=== PATIENT | female | born 1950 | race Caucasian/White ===

== ENCOUNTER 2025-01-11 10:13 | Outpatient (AMB) | payer MEDICARE, SELFPAY ==
--- NOTE | 2025-01-11 10:21 | MHC.OFFVIS ---
Intake Visit Reasons: balance Allergies No Known Allergies Allergy (Verified 01/06/25 14:28) Medication List - Last Reconciled 01/11/25 by Stacey Sotelo MD atorvastatin 10 mg PO DAILY vaqhfudvjw-irwyaaqbwpjvl-npxi 50-325-40 mg 1 tab PO Q4H PRN celecoxib (Celebrex) 200 mg PO BID HPI Comments Details: This is a 74-year-old right-handed woman with cerebral microvascular white matter disease some balance problems in the past with multiple closed head injuries as a result of falls, and a history of carpal tunnel syndrome . There had been no significant change management analyst the years. She had a fall with facial injury after tripping on a hole in the pavement on August 09, [address] head. Had shingles right lower extremity in Feb 2022. Has a right heel spur also. Wakes with pressure in head 2-3/ week, better as day goes on. No vertigo. She has cervical spondylosis, muscle tension headaches. Fell in Nov 2022 and again in September 2023 when she tripped on a rug. Has a torn rotator cuff on the right, and has bilateral knee injury and needs arthroscopic surgery. Has pain and tenderness in right fronto temporal area. ?MRI of the brain 2002 for facial pain found to have mild microvascular disease versus demyelinating disease with no significant change on follow-up MRIs in 2013 and 2018 . FOR[facility]LY [facility], [facility] Medical History (Updated 01/11/25 @ 10:40 by Stacey Sotelo MD) Demyelinating disease CTS (carpal tunnel syndrome) Cerebral microvascular disease Insomnia Tension headache Review of Systems Const Details: Sleep:? Difficulty getting to sleep?admits.? Difficulty maintaining sleep?admits.? Urge to move legs?denies.? Teeth grinding?denies.? Shouting or Kicking during sleep?denies.? Abnormal behavior during sleep?denies.? Excessive sleep?denies.? Snoring?denies.? Daytime sleepiness?denies.? ?? General/Constitutional:? Change in appetite?denies.? Chills?denies.? Fatigue?denies.? Fever?denies.? Weight gain?denies.? Weight loss?denies.? ?? Ophthalmologic:? Blurred vision?denies.? Diminished visual acuity?denies.? ?? ENT:? Stuffiness?denies.? Decreased hearing?denies.? Dry mouth?denies.? Ear pain?denies.? Nosebleed?denies.? Ringing in the ears?denies.? Sinus pain?denies.? Sore throat?denies.? Swollen glands?denies.? ?? Endocrine:? Cold intolerance?denies.? Excessive thirst?denies.? Frequent urination?denies.? Heat intolerance?denies.? ?? Respiratory:? Shortness of breath?denies.? Chest pain?denies.? Cough?denies.? ?? Breast:? Breast lump?denies.? Nipple discharge?denies.? ?? Cardiovascular:? Chest pain at rest?denies.? Chest pain with exertion?denies.? Claudication?denies.? Dizziness?denies.? Fluid accumulation in the legs?denies.? Irregular heartbeat?denies.? Palpitations?denies.? ?? Gastrointestinal:? Abdominal pain?denies.? Constipation?denies.? Diarrhea?denies.? Difficulty swallowing?denies.? Heartburn?denies.? Nausea?denies.? Rectal bleeding?denies.? ?? Hematology:? Easy bruising?denies.? Prolonged bleeding?denies.? ?? Genitourinary:? Frequent urination?denies.? Urgency?denies.? Incontinence?denies.? Erectile Dysfunction?denies.? ?? Musculoskeletal:? Neck pain?denies.? Back pain?denies.? Muscle aches?denies.? Painful joints?admits.? Sciatica?denies.? Weakness?denies.? ?? Podiatric:? Difficulty walking?denies.? Foot numbness?denies.? ?? Neurologic:? Difficulty swallowing?denies.? Balance difficulty?denies.? Coordination?normal.? Difficulty speaking?denies.? Dizziness?denies.? Fainting?denies.? Gait abnormality?denies.? Headache?admits.? Loss of strength?denies.? Loss of use of extremity?denies.? Low back pain?denies.? Memory loss?denies.? Seizures?denies.? Tics?denies.? Tingling/Numbness?denies.? Transient loss of vision?denies.? Tremor?denies.? ?? Psychiatric:? Anxiety?denies.? Auditory/visual hallucinations?denies.? Delusions?denies.? Depressed mood?denies.? Stressors?denies.? Substance abuse?denies.? Suicidal thoughts?denies.? ?? Physical Exam Neuro Other: Neurological: ? Abnormal neurological findings:??none.? Mental Status:?alert and oriented X 3,?Normal attention, orientation, memory and affect.? Cranial Nerves:?Pupils are equal, round and reactive to light. Fundoscopy shows normal disc bilaterally. External occular muscles are intact. Visual wynn are full, no ptosis. Face is symmetrical, no facial weakness or droop. Facial sensations are normal. Tongue protrudes in midline. Palate elevates symmetrically. Shoulder shrugging is normal..? Motor Examination:?Normal muscle tone, bulk and strength,?No atrophy or fasciculations,?No drift of the extended upper extremities,?Deep tendon reflexes are 2+?,?Plantars are flexor?.? Straight Leg Raising:?90 degrees.? Sensory Exam:?Normal light touch, temperature, pinprick, vibration and joint-position sensations?,?Rhomberg sign is absent.? Coordination:?no ataxia,?no titubation,?wvxlni-jx-uank, usvy-hduf-jxrj test and rapid alternating movements were normal.? Gait Exam:?Within normal limits.? Cerebellar Signs:?Msjrxi-rl-wvmp and nwbg-qh-mbvv is normal,?no dysdiadochokinesia?.? Extrapyramidal System:?No tremor, rigidity with normal facial expressions,?No bradykinesia, no bradyphrenia. Normal arm swing and posture. No propulsion or retropulsion.? Speech:?Normal,?no dysphasia or dysarthria..? Mini Mental Status Exam: ? Level of Consciousness:?Alert.? Orientation:?Knows correct year, month, date, day and season,?Knows correct city, county and state. Knows correct location and floor.? Registration:?Able to register 3 objects.? Attention:?Serial 7's performed accurately.? Recall:?Able to recall 3 out of 3 objects.? Language:?Normal spontaneous speech, fluency, repetition,naming, comprehension, reading and writing.? Total Score ?30/30.? General Examination: ? GENERAL APPEARANCE:?normal,?in no acute distress.? HEAD:?normocephalic,?atraumatic.? EYES:?sclera non-icteric,?conjunctiva clear.? EARS:?auditory canal clear,?tympanic membrane intact, clear.? NOSE:?no lesions.? ORAL CAVITY:?gums normal,?mucosa moist,?no lesions.? THROAT:?clear.? NECK/THYROID:?no cervical lymphadenopathy,?thyroid normal,?neck supple, full range of motion,?no carotid bruit.? SKIN:?no rashes,?no significant birthmarks.? HEART:?S1, S2 normal,?no murmurs.? LUNGS:?clear anteriorly and posteriorly.? CHEST:?no gross rib deformity,?clear to auscultation.? BACK:?normal exam of spine.? EXTREMITIES:?no edema.? PERIPHERAL PULSES:?normal.? PSYCH:?alert, oriented,?cognitive function intact,?cooperative with exam.? Assessment & Plan Assessment & Plan (1) Cerebral microvascular disease: Code(s): I67.89 - Other cerebrovascular disease Category: Medical (2) Concussion: Code(s): S06.0XAA - Concussion with loss of consciousness status unknown, initial encounter Category: Medical Plan F/U MRI brain Orders: Orders MR head/brain wo con 4 Weeks I67.89 - Other cerebrovascular disease Coding Level of Care Code New Pt Level 5 (54700) Diagnoses Cerebral microvascular disease I67. Concussion S06.0XAA
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
--- OUTSIDE RECORDS SUMMARY | 2025-01-11 11:47 | XMS_ITS | Clinical Summary ---
Author Organization [facility] [address] [place] [address] Address [address] [place], [place] Phone Care Team Providers Care Mems Integration Engineer Name Role Phone Chandra Smiley MD Primary Care Provider Allergies Active Allergy Reactions Criticality Noted Date Comments Other 06/05/2014 smoke Pollen Extracts 07/05/2024 Medications meclizine (ANTIVERT) 25 mg tablet Take 1 Tablet by mouth 3 times daily as needed (vertigo). 10/05/19 24 Active MULTIVITAMIN ORAL Take by mouth. Multiple Vitamins-Mine rals (Multivitamin Adults 50+) Tab Active acetaminophen (TYLENOL) 500 mg tablet Take 1 tablet (500 mg total) by mouth every 6 (six) hours if needed. Active albuterol HFA (PROAIR HFA ; PROVENTIL HFA ; VENTOLIN HFA) 90 mcg/actuation inhaler Inhale 2 Puffs into the lungs every 4 hours as needed for Cough, Wheezing or Shortness of Breath. 02/10/20 23 Active calcium carbonate/dominique min D3 (CALCIUM 600 + D,3, ORAL) Take 600 mg by mouth daily. Active celecoxib (CeleBREX) 200 mg capsule Take 1 capsule (200 mg total) by mouth 2 (two) times a day if needed for moderate pain. 180 each 1 05/03/19 25 Active alendronate (FOSAMAX) 70 mg tablet Take 1 tablet once weekly 4 tablet 3 07/06/19 25 Active atorvastatin (LIPITOR) 10 mg tablet TAKE 1 TABLET BY MOUTH DAILY 90 tablet 12/14/19 25 Active atorvastatin (LIPITOR) 10 mg tablet TAKE 1 TABLET BY MOUTH DAILY 90 tablet 1 05/18/19 25 025 Discontinued Active Problems Problem Noted Date Diagnosed Date Seasonal allergic rhinitis 07/20/2024 Cholelithiasis 07/20/2024 Anxiety 07/20/2024 Primary osteoarthritis of right knee 06/08/2024 Primary osteoarthritis of left knee 06/08/2024 Gait instability 06/08/2024 History of fall 06/08/2024 Rotator cuff arthropathy of right shoulder 03/[address] nodules [address] CT 03/18/2024 Assessment & Plan (08/15/2024 5:25 PM EDT): Orders: CT Chest wo Contrast; Future Patient is a non-smoker, has multiple small pulmonary and bilateral nodules. Stable on recent CT imaging. Repeat CT scan for 6-month follow-up recommended. GERD (gastroesophageal reflux disease) 2 Arthritis of both knees 11/08/2020 Hyperlipidemia 03/22/2020 Assessment & Plan (08/15/2024 5:25 PM EDT): Continue on Lipitor daily. Cholesterol levels are controlled. Closed head injury 10/22/2015 Overview (12/25/2023): Sees neuro, had mri IBS (irritable bowel syndrome) 10/19/2014 Major depression 06/05/2014 Carpal tunnel syndrome 01/20/2005 Idiopathic osteoporosis 01/20/2005 Overview (12/25/2023): Did not like fosamax in the past 01/28 T score spine -2.0 hip -2.6 Assessment & Plan (08/15/2024 5:25 PM EDT): Continue on Fosamax. Continue care with endocrinology. Bone density pending. Encounters Date Type Department Care Team Description 12/08/2024 Telephone Adult Medicine [id number] [place] [address] Chandra Smiley MD 10/19/2024 9:37 AM EDT - 10/19/2024 12:[address] [facility] Emergency [address] [place] [address] Chronic nonintractable headache, unspecified headache type (Primary Dx) Discharge Disposition: Home or Self Care 10/13/2024 1:31 PM EDT - 10/13/2024 5:09 PM EDT [facility] Emergency [address] [place] [phone] Discharge Disposition: Home or Self Care from Last 3 Months Immunizations Immunization Administration Dates Next Due Influenza Quadravalent, 0.5m l (Fluad) 65yo and older 01/11/2021 Influenza Quadravalent, 0.5m l (Fluzone High-dose) 65yo and older 11/09/2019 Influenza trivalent, 0.5mL ( Fluad) 65yo and older 11/01/2021,01/06/2019,11/17/2017,02/20,01/22/2016 Influenza trivalent, with pr eservative (Fluzone; Afluria) 6mo and older 12/09/2013,03/08/2013 Influenza, Unspecified 11/24/2022,02/20/2017, BuildOut SARS-CoV-2 COVID-19, mRNA, LNP-S, preservative free 11/01/2020,08/01/2020,06/01/2020,05/11 Pneumococcal conjugate 13 va lent (Prevnar 13, PCV13) 2mo and older 05/29/2017,04/12/2015 Pneumococcal polysaccharide 23 valent (Pneumovax 23) 2yo and older 01/06/2019 RSV, bivalent, protein subun it RSVpreF, 0.5mL, Preservative Free (Arexvy) 50yo and older 02/20/2023 Td Tetanus diptheria (Tdvax) 7yo and older 02/09/2004 Td, Unspecified 02/09/2004 Tdap Tetanus diptheria acell ular pertussis (Boostrix; Adacel) 7yo and older 04/12/2015,07/04/2010 Zoster Live 06/07/2013 Zoster recombinant (Shingrix ) 19yo and older 05/23/2023,02/20/2023 Surgical History Surgery Date Site/Laterality Comments SECTION PROCEDURE: HISTORICAL DELIVERY; COMMENT: x 3 COLONOSCOPY PROCEDURE: HISTORICAL COLONOSCOPY; COMMENT: 2001 COLONOSCOPY PROCEDURE: HISTORICAL COLONOSCOPY; COMMENT: Normal colonoscopy COLONOSCOPY 09/24/2020 PROCEDURE: HISTORICAL COLONOSCOPY; COMMENT: mild sigmoid diverticulosis Medical History Medical History Date Comments Idiopathic osteoporosis 01/20/2005 DX:Idiop athic osteoporosis Carpal tunnel syndrome 01/20/2005 DX:Carpal tunnel syndrome IBS (irritable bowel syndrome) 10/19/2014 D X:IBS (irritable bowel syndrome) Colon cancer screening 04/19/2015 DX:Colon cancer screening; COMMENT: [place] done 04/2015 and due in 10 years Closed head injury 10/22/2015 DX:Closed hea d injury; COMMENT: Sees neuro, had mri Abdominal cramping DX:Abdominal cramping Straining with stools DX:Straini ng with stools Depressive disorder DX:Depressiv e disorder Hyperlipidemia DX:Hyperlipidemi a GERD (gastroesophageal reflux disease) DX:GERD (gastroesophageal reflux disease) Abdominal cramping DX:Abdominal cramping Anxiety 07/20/2024 Family History Medical History Relation Name Comments Depression Brother Hypertension Father Breast cancer Mother 66y depression, ar thritis Depression Sister Relation Name Status Comments Brother Father Mother 66y Sister Social History Tobacco Use Types Packs/Day Years Used Date Smoking Tobacco: Never Smokeless Tobacco: Never Tobacco Cessation:Counseling Given: Not Answered Alcohol Use Standard Drinks/Week Comments No 0 [...] care for your loved ones. For example, child protective services social worker or elderly care for an older adult? [...] AM EDT Sexual Orientation Not on file Obstetrics History Para Term AB IAB SAB Ectopic Multiple Livin g Live Births 3 3 3 3 Date Outcome GA Total Labor Labor/2nd/3rd Weight Sex Type Anes PTL Tania A1 A5 Name Clin Term Term Term Last Filed Vital Signs Vital Sign Reading Time Taken Comments Blood Pressure 134/64 10/19/2024 9:48 AM EDT Pulse 76 10/19/2024 9:48 AM EDT Temperature 36.9 C (98.4 F) 10/19/2024 9:48 AM EDT Respiratory Rate 18 10/19/2024 9:48 AM EDT Oxygen Saturation 100% 10/19/2024 9:48 AM EDT Inhaled Oxygen Concentration - - Weight 59 kg (130 lb) 10/19/2024 9:42 AM EDT Height 149.9 cm (4' 11 ) 10/19/2024 9:42 AM EDT Body Mass Index 26.26 10/19/2024 9:42 AM EDT Plan of Treatment Upcoming Encounters Date Type Department Care Team (Late st Contact Info) Description 02/16/2025 11:00 AM EST Office Visit Adult Medicine [address] [phone] Tess Chino PA [address] [place] [address] 07/05/2025 11:00 AM EDT Office Visit [address] [phone] Johanna Downs PA [address] [place] [id number] Health Maintenance Due Date Last Done Comments COVID-19 Vaccine ( season) 2024 01/15/2024, 05/23/2023, 11/01/2021, Additional history exists DTaP,Tdap,and Td Vaccines (5 - Td or Tdap) 04/12/2025 04/12/2015, 07/04/2010, 02/09/2004, Additional history exists Falls Risk Assessment 08/15/2025 08/15/2024 , 08/15/2024, 10/05/2023 Medicare Annual Wellness Visit 08/15/2025 08/15/2024 Social Influencers of Health Screening 08/15/2025 08/15/2024 Cholesterol Screening (Lipid Panel) 03/31/2029 03/31/2024, 02/18/2023 Osteoporosis Screening (Bone Density Screening) 08/30/2034 08/30/2024, 02/03/2022, 04/20/2019 Pneumococcal Vaccine: 50+ Years Completed 01/06/2019, 05/29/2017, 04/12/2015 Colorectal Cancer Screening: Colonoscopy Discontinued 09/24/2020 Hepatitis C Screening Completed 11/17/2020 RSV Immunization Adult Patients Completed 02/20/2023 Zoster Vaccines Completed 05/23/2023, 02/06, 06/07/2013 Depression Screening Completed 08/15/2024, 08/11/19 Breast Cancer Screening Discontinued 08/24/19, 02/27/2023, 02/17/2022, Additional history exists Influenza Vaccine Completed 10/08/2024, , 11/01/2021, Additional history exists HIB Vaccines Aged Out No longer eligi ble based on patient's age to complete this topic HPV Vaccines Aged Out No longer eligi ble based on patient's age to complete this topic Hepatitis A Vaccines Aged Out No long er eligible based on patient's age to complete this topic Hepatitis B Vaccines Aged Out No long er eligible based on patient's age to complete this topic IPV Vaccines Aged Out No longer eligi ble based on patient's age to complete this topic MMR Vaccines Aged Out No longer eligi ble based on patient's age to complete this topic Meningococcal ACWY Vaccine Aged Out N o longer eligible based on patient's age to complete this topic Meningococcal B Vaccine Aged Out No l onger eligible based on patient's age to complete this topic RSV Immunization Patients Under 20 months Aged Out No longer eligible based on patient's age to complete this topic Varicella Vaccines Aged Out No longer eligible based on patient's age to complete this topic Goals Goal Patient Goal Type Associated Problems [...] better to minimize her risk of falls. Procedures Procedure Name Priority Date/Time Associated Diagnosis Comments BD BONE DENSITY DXA AXIAL SKELETON Routine 08/30/2024 2:38 PM EDT Age related osteoporosis, unspecified pathological fracture presence MG MAMMO DIGITAL SCREENING W MAX BILAT Routine 08/23/2024 2:56 PM EDT Encounter for screening mammogram for breast cancer LIPID PANEL WITH REFLEX TO DIRECT LDL Routine 03/31/2024 3:59 PM EST Other hyperlipidemia FALLS RISK ASSESSMENT Routine 10/05/2023 DEPRESSION SCREENING Routine 08/11/2023 HEPATITIS C SCREENING Routine 11/17/2020 COLONOSCOPY Routine 09/24/2020 from Last 3 Months or Most Recently Relevant to Health Maintenance Results * BD Bone Density DXA Axial Skeleton (08/30/2024 2:38 PM EDT) Anatomical Region Laterality Modality Wrist, Hip, L-spine Bone Densito metry 08/30/2024 4:25 PM EDT Impressions 08/30/2024 4:26 PM EDT Osteoporosis. Telerad ROSA ([id number]) -------- FINAL REPORT -------- Dictated By: Zofia Banegas Dictated Date: 08/30/2024 16:25 ET Assigned Physician: Zofia Banegas Reviewed and Electronically Signed By: Zofia Banegas Signed Date: 08/30/2024 16:26 ET Workstation ID: [id number] Transcribed By: Self Edit Transcribed Date: 08/30/2024 16:25 ET Narrative 08/30/2024 4:26 PM EDT History: Low estrogen state due to menopause. Parent hip fracture. Fosamax. Comparison: No comparison imaging at this institution. Findings: Bone densitometry is performed utilizing dual energy x-ray absorptiometry (DXA) in the Tagoo Prodigy unit. The lumbar spine and proximal femora are evaluated in the AP projection. The FRAX questionaire was completed. The results indicate osteoporosis, with a left femoral neck T-score of -2.6. The Z score is -0.7, indicating bone mineral density within the range of normal for age. The detailed DEXA report will be mailed to the referring physician's office. DualFemur FRAX: 10-year Probability of Fracture: Major Osteoporotic 31.7 percent Hip 21.2 percent. Procedure Note Zofia Banegas MD - 08/30/2024 History: Low estrogen state due to menopause. Parent hip fracture.Fosamax. Comparison: No comparison imaging at this institution. Findings: Bone densitometry is performed utilizing dual energy x-ray absorptiometry(DXA) in the Lunar Prodigy unit. The lumbar spine and proximal femora areevaluated in the AP projection. The FRAX questionaire was completed. The results indicate osteoporosis, with a left femoral neck T-score of-2.6. The Z score is -0.7, indicating bone mineral density within therange of normal for age. The detailed DEXA report will be mailed to thereferring physician's office. DualFemur FRAX: 10-year Probability of Fracture: Major Osteoporotic 31.7percent Hip 21.2 percent. IMPRESSION: Osteoporosis. Cecile LEE ([id number]) -------- FINAL REPORT -------- Dictated By: Zofia Banegas Dictated Date: 08/30/2024 16:25 ET Assigned Physician: Zofia Banegas Reviewed and Electronically Signed By: Zofia Banegas Signed Date: 08/30/2024 16:26 ET Workstation ID: [id number] Transcribed By: Self Edit Transcribed Date: 08/30/2024 16:25 ET us Johanna LEE IMG DXA PROCEDURES Final Result * MG Mammo Digital Screening w Max bilat (08/23/2024 2:56 PM EDT) Anatomical Region Laterality Modality Breast Bilateral Mammography 08/24/2024 9:08 AM EDT Impressions 08/24/2024 9:10 AM EDT No mammographic evidence for malignancy. BI-RADS CATEGORY: 1 - NEGATIVE RECOMMENDATION: Screening bilateral mammogram is recommended in 1 year. Mammo Location: [facility], [address] [place] [address], [id number], . -------- FINAL REPORT -------- Dictated By: Zeinab Yates Dictated Date: 08/24/2024 09:08 ET Assigned Physician: Zeinab Yates Reviewed and Electronically Signed By: Zeinab Yates Signed Date: 08/24/2024 09:10 ET Workstation ID: [id number] Transcribed By: Self Edit Transcribed Date: 08/24/2024 09:08 ET Narrative 08/24/2024 9:10 AM EDT Bilateral screening mammogram. CLINICAL: 73 years old, Female, routine annual exam. COMPARISON: Prior mammograms, latest from 02/27/2023. TECHNIQUE: Bilateral MLO and CC views were obtained digitally with 2-D C views and 3-D mammogram (digital breast tomosynthesis). Computer-aided detection was utilized in evaluation of this exam (CAD). FINDINGS: There is no evidence of suspicious mass or architectural distortion. No worrisome calcifications are evident. There has been no significant change from prior exam(s). BREAST DENSITY: B - There are scattered areas of fibroglandular density. Procedure Note Zeinab Yates MD - 08/24/2024 Bilateral screening mammogram. CLINICAL: 73 years old, Female, routine annual exam. COMPARISON: Prior mammograms, latest from 02/27/2023. TECHNIQUE: Bilateral MLO and CC views were obtained digitally with 2-D Cviews and 3-D mammogram (digital breast tomosynthesis). Computer-aideddetection was utilized in evaluation of this exam (CAD). FINDINGS: There is no evidence of suspicious mass or architectural distortion. Noworrisome calcifications are evident. There has been no significantchange from prior exam(s). BREAST DENSITY: B - There are scattered areas of fibroglandular density. IMPRESSION: No mammographic evidence for malignancy. BI-RADS CATEGORY: 1 - NEGATIVE RECOMMENDATION: Screening bilateral mammogram is recommended in 1 year. Mammo Location: [facility], [address] [place] [address], [id number], . -------- FINAL REPORT -------- Dictated By: Zeinab Yates Dictated Date: 08/24/2024 09:08 ET Assigned Physician: Zeinab Yates Reviewed and Electronically Signed By: Zeinab Yates Signed Date: 08/24/2024 09:10 ET Workstation ID: [id number] Transcribed By: Self Edit Transcribed Date: 08/24/2024 09:08 ET Chandra Smiley MD IMG BI PROCEDURES Ngoc l Result * Lipid panel with reflex to direct LDL (03/31/2024 3:59 PM EST) Cholesterol 171 0 - 200 mg/dL LAB CHEMISTRY METHOD 03/31/2024 7:04 PM [facility] Triglycerides 72 0 - 150 mg/dL LAB CHEMISTRY METHOD 03/31/2024 7:04 PM [facility] HDL 82 >=40 mg/dL LAB CHEMISTRY METHOD 03/31/2024 7:04 PM [facility] LDL Calculated 75 0 - 100 mg/dL LAB CHEMISTRY METHOD 03/31/2024 7:04 PM [facility] VLDL Cholesterol Aldo 14.4 mg/dL LAB CHEMISTRY METHOD 03/31/2024 7:04 PM [facility] Non HDL Chol. (LDL+VLDL) 89 <145 mg/dL LAB CHEMISTRY METHOD 03/31/2024 7:04 PM [facility] Chol/HDL Ratio 2.1 0.0 - 4.4 LAB CHEMISTRY METHOD 03/31/2024 7:04 PM EST [facility] Blood Venous blood specimen / Unknown Venipuncture / Unknown 03/31/2024 3:59 PM EST 03/31/2024 3:59 PM EST Chandra Smiley MD LAB BLOOD ORDERABLES F inal Result [facility] [address] [place] [address], [place] [phone] * Falls Risk Assessment (10/05/2023) [facility] Falls Risk Assessment abstracted [facility] Provider HEALTH MAINTENANCE Final Result * Depression Screening (08/11/2023) Pathologist On license of [facility] Depression Screening abstracted [facility] Provider HEALTH MAINTENANCE Final Result * Hepatitis C Screening (11/17/2020) Pathologist On license of [facility] Hepatitis C Screening abstracted [facility] Provider HEALTH MAINTENANCE Final Result * Colonoscopy (09/24/2020) Pathologist On license of [facility] Colonoscopy abstracted, no interpretation Anatomical Region Laterality Modality Other [facility] Provider HEALTH MAINTENANCE Final Result from Last 3 Months or Most Recently Relevant to Health Maintenance Insurance [employer] MED[employer]ARE Care Teams Mems Integration Engineer Relationship Specialty Start Date End Date Chandra Smiley MD [address] [place] [address] PCP - General 10/28/22
== END 2025-01-11 10:47 | disposition home or self-care (01) ==
LOC: HO.HSM 10:13
PROVIDERS: PCP Internal Medicine; Visit Provider Psychiatry & Neurology Neurology
DX: I67.89 Other cerebrovascular disease (principal); S06.0XAA Concussion with loss of consciousness status unknown, initial encounter
CPT/HCPCS: 99203

== ENCOUNTER → 2025-01-11 10:13 | Outpatient (BNVA) | payer MEDICARE, SELFPAY | PROVIDERS: PCP Internal Medicine; Visit Provider Psychiatry & Neurology Neurology | DX: I25.85 Chronic coronary microvascular dysfunction (principal); Z91.81 History of falling; S06.0XAA Concussion with loss of consciousness status unknown, initial encounter | CPT/HCPCS: 99202 ==

== ENCOUNTER → 2025-02-04 19:54 | Outpatient (BNV) | payer MEDICARE, SELFPAY | PROVIDERS: PCP Internal Medicine; Visit Provider Radiology Diagnostic Radiology | DX: I67.89 Other cerebrovascular disease (principal); G31.9 Degenerative disease of nervous system, unspecified; R90.82 White matter disease, unspecified | CPT/HCPCS: 70551 ==

== ENCOUNTER 2025-02-04 20:05 | Outpatient (REF) | payer MEDICARE, SELFPAY ==
--- NOTE | ~2025-02-04 | MR_ITS ---
EXAMINATION: MR BRAIN WITHOUT CONTRAST CLINICAL INFORMATION: I 67.89. Other cervical vascular disease. COMPARISON: None available. TECHNIQUE: MRI of the brain was obtained using routine sequences without contrast. FINDINGS: No restricted diffusion. No acute intracranial hemorrhage, mass effect, midline shift, hydrocephalus or herniation. Chaidez-white matter differentiation is normal. Bilateral, multifocal patchy and confluent deep periventricular white matter, subcortical and white matter hyperintense T2 FLAIR signal involving centrum semiovale and huff radiata. Multifocal old lacunar infarct, basal ganglia and huff radiata white matter. Prominence of the extra-axial CSF spaces cerebral sulci and ventricles. Flow-void signal within the main cerebral vessels is normal. Sellar/suprasellar region demonstrated no signal abnormality or masses. Craniocervical junction is intact with normal position of the cerebellar tonsils. Cervical spondylosis, C4-5. MR/MR head/brain wo con IMPRESSION: No acute brain abnormality. White matter disease likely related to small vessel occlusive disease. Global cerebral atrophy, mild to moderate involving mostly the bifrontal biparietal lobes. Electronically signed by: Juanjo Bowles MD 02/06/2025 06:58 AM EST
--- OUTSIDE RECORDS SUMMARY | 2025-02-04 20:12 | XMS_ITS | Clinical Summary ---
Author Organization [facility] [address] [place] [address] Address [address] [place], [place] Phone Care Team Providers Care Heavy Forger Name Role Phone Chandra Smiley MD Primary Care Provider Allergies Active Allergy Reactions Criticality Noted Date Comments Other 06/05/2014 smoke Pollen Extracts 07/05/2024 Medications meclizine (ANTIVERT) 25 mg tablet Take 1 Tablet by mouth 3 times daily as needed (vertigo). 4 Active MULTIVITAMIN ORAL Take by mouth. Multiple Vitamins-[place] als (Multivitamin Adults 50+) Tab Active acetaminophen (TYLENOL) 500 mg tablet Take 1 tablet (500 mg total) by mouth every 6 (six) hours if needed. Active albuterol HFA (PROAIR HFA ; PROVENTIL HFA ; VENTOLIN HFA) 90 mcg/actuation inhaler Inhale 2 Puffs into the lungs every 4 hours as needed for Cough, Wheezing or Shortness of Breath. 3 Active calcium carbonate/vitam in D3 (CALCIUM 600 + D,3, ORAL) Take 600 mg by mouth daily. Active celecoxib (CeleBREX) 200 mg capsule Take 1 capsule (200 mg total) by mouth 2 (two) times a day if needed for moderate pain. 180 each 1 Active alendronate (FOSAMAX) 70 mg tablet Take 1 tablet once weekly 4 tablet 3 Active atorvastatin (LIPITOR) 10 mg tablet TAKE 1 TABLET BY MOUTH DAILY 90 tablet Active Active Problems Problem Noted Date Diagnosed Date [...] Care Team Description 12/08/2024 Telephone Adult Medicine [address] [address] Chandra Smiley MD from Last 3 Months Immunizations Immunization Administration Dates Next Due Influenza Quadravalent, 0.5m l (Fluad) 65yo and older 01/11/2021 Influenza Quadravalent, 0.5m l (Fluzone High-dose) 65yo and older 11/09/2019 Influenza trivalent, 0.5mL ( Fluad) 65yo and older 11/01/2021,01/06/2019,11/17/2017,02/20,01/22/2016 Influenza trivalent, with pr eservative (Fluzone; Afluria) 6mo and older 12/09/2013,03/08/2013 Influenza, Unspecified 11/24/2022,02/20/2017, [place] SARS-CoV-2 COVID-19, mRNA, LNP-S, preservative free 11/01/2020,08/01/2020,06/01/2020,05/11 [...] cancer screening 04/19/2015 DX:Colon cancer screening; COMMENT: [place] done 04/2015 and due in 10 years [...] ed Within the last 3 months, ho elsy many times did you visit the emergency [...] for your loved ones. For example, child welfare manager or elderly care for an older adult? [...] AM EST Office Visit [facility] [place] - [address] [phone] Tess Chino PA [address] [place], [place] 07/05/2025 11:00 AM EDT Office Visit Endocrinology [address] [phone] Johanna Downs PA [address] [place], [place] Health Maintenance Due Date Last Done Comments COVID-19 Vaccine (2024- season) 2024 01/15/2024, 05/23/2023, 11/01/2021, Additional history [...] EDT Impressions 08/30/2024 4:26 PM EDT Osteoporosis. Telepatricia LEE ([id number]) -------- FINAL REPORT -------- Dictated By: Zofia Banegas Dictated Date: 08/30/2024 16:25 ET Assigned Physician: Zofia Banegas Reviewed and Electronically Signed By: Zofia Banegas Signed Date: 08/30/2024 16:26 ET Workstation ID: [id number] Transcribed By: Self Edit Transcribed Date: 08/30/2024 16:25 ET Narrative 08/30/2024 4:26 PM EDT History: Low estrogen state due to menopause. Parent hip fracture. Fosamax. Comparison: No comparison imaging at this institution. Findings: Bone densitometry is performed utilizing dual energy x-ray absorptiometry (DXA) in the [employer] unit. The lumbar spine and proximal femora [...] utilizing dual energy x-ray absorptiometry(DXA) in the [employer] unit. The lumbar spine and proximal femora [...] Osteoporotic 31.7percent Hip 21.2 percent. IMPRESSION: Osteoporosis. Telepatricia LEE ([id number]) -------- FINAL REPORT -------- Dictated By: Zofia Banegas Dictated Date: 08/30/2024 16:25 ET Assigned Physician: Zofia Banegas Reviewed and Electronically Signed By: Zofia Banegas Signed Date: 08/30/2024 16:26 ET Workstation ID: [id number] Transcribed By: Self Edit Transcribed Date: 08/30/2024 [...] is recommended in 1 year. Mammo Location: [facility], [address] [place] [address], [id number], . -------- FINAL REPORT -------- Dictated By: Zeinab Yates Dictated Date: 08/24/2024 09:08 ET Assigned Physician: Zeinab Yates Reviewed and Electronically Signed By: Zeinab Yates Signed Date: 08/24/2024 09:10 ET Workstation ID: [id number] Transcribed By: Self Edit Transcribed Date: 08/24/2024 [...] is recommended in 1 year. Mammo Location: [facility], [address] [place] [address], [id number], . -------- FINAL REPORT -------- Dictated By: Zeinab Yates Dictated Date: 08/24/2024 09:08 ET Assigned Physician: Zeinab Yates Reviewed and Electronically Signed By: Zeinab Yates Signed Date: 08/24/2024 09:10 ET Workstation ID: [id number] Transcribed By: Self Edit Transcribed Date: 08/24/2024 09:08 ET Chandra Smiley MD IMG BI PROCEDURES Ngoc l Result * Lipid panel with reflex to direct LDL (03/31/2024 3:59 PM EST) Cholesterol 171 0 - 200 mg/dL LAB CHEMISTRY METHOD 03/31/2024 7:04 PM EST [facility] Triglycerides 72 0 - 150 mg/dL LAB CHEMISTRY METHOD 03/31/2024 7:04 PM EST [facility] HDL 82 >=40 mg/dL LAB CHEMISTRY METHOD 03/31/2024 7:04 PM EST [facility] LDL Calculated 75 0 - 100 mg/dL LAB CHEMISTRY METHOD 03/31/2024 7:04 PM EST [facility] VLDL Cholesterol Aldo 14.4 mg/dL LAB CHEMISTRY METHOD 03/31/2024 7:04 PM EST [facility] Non HDL Chol. (LDL+VLDL) 89 <145 mg/dL LAB CHEMISTRY METHOD 03/31/2024 7:04 PM EST [facility] Chol/HDL Ratio 2.1 0.0 - 4.4 LAB CHEMISTRY METHOD 03/31/2024 7:04 PM EST [facility] Blood Venous blood specimen / Unknown Venipuncture / Unknown 03/31/2024 3:59 PM EST 03/31/2024 3:59 PM EST us Chandra Smiley MD LAB BLOOD ORDERABLES F inal Result [facility] [address] [place] [address], [place] [phone] * Falls Risk Assessment (10/05/2023) Falls Risk Assessment abstracted Historical Provider HEALTH MAINTENANCE Final Result * Depression Screening (08/11/2023) Depression Screening abstracted Historical Provider HEALTH MAINTENANCE Final Result * Hepatitis C Screening (11/17/2020) Hepatitis C Screening abstracted Historical Provider HEALTH MAINTENANCE Final Result * Colonoscopy (09/24/2020) Colonoscopy abstracted, no interpretation Anatomical Region Laterality Modality Other Historical Provider HEALTH MAINTENANCE Final Result from Last 3 Months or Most Recently Relevant to Health Maintenance Insurance [employer] MED[employer] Care Teams Heavy Forger Relationship Specialty Start Date End Date Chandra Smiley MD [address] [place] [address] PCP - General 10/28/22
== END 2025-02-04 20:06 | disposition home or self-care (01) ==
LOC: HO.MRI 20:05
PROVIDERS: PCP Internal Medicine; Visit Provider Psychiatry & Neurology Neurology
DX: I67.89 Other cerebrovascular disease (principal)
CPT/HCPCS: 70551

== ENCOUNTER 2025-02-10 11:13 | Outpatient (AMB) | payer MEDICARE, SELFPAY ==
--- NOTE | 2025-02-10 11:14 | A.OFFVIS_ITS ---
Vital Signs 02/10/25 11:27 Height 5 ft Weight 135 lb BMI 26.4 BP 128/64 Blood Pressure Location Lt brachial Position Sitting Respiration 16 Pulse 95 Pulse Source Pulse Oximeter Pulse Oximetry (%) 96 Oxygen Delivery Method Room Air Intake Visit Reasons: Sooner appt Freight [place] Required: No Allergies No Known Allergies Allergy (Verified 02/10/25 11:28) HPI Comments Details: Fiona is a 74-year-old female patient with a past medical history of hiperlipidemia, balance problems, and microvascular disease on MRI who is here today for some ongoing headaches. She tells me today that her headaches started after a fall and she has been having headaches to the right temporal and frontal area that feel like a burning sensation accompanied by irritability on a proximally 3-5 days per week. She feels that most of the time she wakes up morning with them and they wax and wane in severity throughout the day. She does not have any accompanying light sensitivity, sound sensitivity, or nausea. She does however have some dizziness on occasion. She has been using Tylenol and ibuprofen as needed averaging a couple times per week. [facility] Medical History (Updated 02/10/25 @ 12:07 by Naheed Bowesr CNP) Demyelinating disease CTS (carpal tunnel syndrome) Cerebral microvascular disease Insomnia Tension headache Review of Systems Const All systems reviewed & are unremarkable except as noted in HPI and below Physical Exam Vital Signs: Last Vital Signs Pulse 95 02/10/25 11:27 Resp 16 02/10/25 11:27 BP 128/64 02/10/25 11:27 Pulse Ox 96 02/10/25 11:27 Oxygen Delivery Method Room Air 02/10/25 11:27 BMI result Body Mass Index 26.4 Const General: cooperative, healthy appearing, comfortable and no acute distress Nutritional Appearance: well nourished Orientation/consciousness: patient oriented x3 Limitations: no limitations HEENT Head: Yes normal to inspection and Yes normocephalic Eyes General: appearance normal, both eyes and all related structures Visual Wynn: normal visual wynn by confrontation Alignment and Position: alignment normal Periorbital: periorbital findings normal Eyelids: Yes eyelids normal Conjunctivae: conjunctivae normal Sclerae: sclerae normal Back/Spine/Pelvis Other: Right trapezius trigger point and right occipital tenderness. Some smaller trigger points to the left trapezius area and less tenderness to the left occipital area though still some mild tenderness. Neuro General: patient oriented x3 Cranial nerves: Yes CN's II-XII intact bilaterally and Yes Facial sensation intact/muscles of mastication intact Cognition (Neuro): normal cognition Gait exam (Neuro): Normal gait present Motor exam (neuro): 5/5 motor strength present throughout and no tremor noted Sensory Exam: double simultaneous stimulation for sensation normal Romberg Test: Negative Pupils: Normal pupillary reactivity/response: bilateral Psych Appearance: grossly normal Mental Status: mental status grossly normal Speech and movement: Normal speech and movement present and Clear speech present Affect: normal affect Attitude: cooperative Thought process: Normal thought process present Thought content: Normal thought content present Insight: Good insight present (Psych) Judgement: Good judgement present (Psych) Assessment & Plan Assessment & Plan (1) Occipital neuralgia of right side: Code(s): M54.81 - Occipital neuralgia Category: Medical (2) Trigger point of right shoulder region: Code(s): M25.511 - Pain in right shoulder Category: Medical Plan Fiona is a 74-year-old female patient with a past medical history of hiperlipide margaret, balance problems, and microvascular disease on MRI who is here today for some ongoing headaches. Headaches are likely tension related as evidenced by a large trigger point in the right trapezius area with right occipital notch tenderness and lack of migrainous features. I am recommending a course of cyclobenzaprine 5 mg nightly and myofascial release techniques at home. If she does not respond to these measures, could consider trigger point injections moving forward. - Start cyclobenzaprine 5 mg nightly - Myofacial release techniques at home (heat and massage) -Follow-up in 6 weeks or sooner if needed Medications: New cyclobenzaprine 5 mg PO BEDTIME 30 tabs 3RF 30 days Coding Level of Care Code Est Pt Level 4 (60511) Diagnoses Occipital neuralgia of right side M54.81 Trigger point of right shoulder region M25.511
[2025-02-10 11:27] VITALS: BP 128/64; PULSE 95; RESP 16; O2SAT 96; BMI 26.4
--- OUTSIDE RECORDS SUMMARY | 2025-02-10 13:45 | XMS_ITS | Clinical Summary ---
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 4 Active MULTIVITAMIN ORAL Take by mouth. Multiple Vitamins-[place] als (Multivitamin Adults 50+) Tab Active acetaminophen [...] Care Team Description 12/08/2024 Telephone Adult Medicine [address] [phone] Chandra Smiley MD from Last 3 Months Immunizations Immunization Administration Dates Next Due Influenza Quadravalent, 0.5m l (Fluad) 65yo and older 01/11/2021 Influenza Quadravalent, 0.5m l (Fluzone High-dose) 65yo and older 11/09/2019 Influenza trivalent, 0.5mL ( Fluad) 65yo and older 11/01/2021,01/06/2019,11/17/2017,02/20,01/22/2016 Influenza trivalent, with pr eservative (Fluzone; Afluria) 6mo and older 12/09/2013,03/08/2013 Influenza, Unspecified 11/24/2022,02/20/2017, Pllop.it SARS-CoV-2 COVID-19, mRNA, LNP-S, preservative free 11/01/2020,08/01/2020,06/01/2020,05/11 [...] cancer screening 04/19/2015 DX:Colon cancer screening; COMMENT: [place] done 04/2015 and due in 10 years [...] care for your loved ones. 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 [...] EST Office Visit [facility] - [address] [phone] Tess Chino PA [address], [place] 02/16/2025 11:[address] Scan - [address] [phone] 07/05/2025 11:00 AM EDT Office Visit Endocrinology - [address] [phone] Johanna Downs PA [address] [place] [address] Health Maintenance Due Date Last Done Comments [...] 08/30/2024 4:26 PM EDT Osteoporosis. Telerad ROSA ([id number]) -------- FINAL REPORT -------- Dictated By: Zofia Banegas Dictated Date: 08/30/2024 16:25 ET Assigned Physician: Zofia Banegas Reviewed and Electronically Signed By: Zofia Banegas Signed Date: 08/30/2024 16:26 ET Workstation ID: [id number] Transcribed By: Self Edit Transcribed Date: 08/30/2024 16:25 ET Narrative 08/30/2024 4:26 PM EDT History: Low estrogen state due to menopause. Parent hip fracture. Fosamax. Comparison: No comparison imaging at this institution. Findings: Bone densitometry is performed utilizing dual energy x-ray absorptiometry (DXA) in the [employer] unit. The lumbar spine and proximal femora [...] utilizing dual energy x-ray absorptiometry(DXA) in the [employer] unit. The lumbar spine and proximal femora [...] Osteoporotic 31.7percent Hip 21.2 percent. IMPRESSION: Osteoporosis. Telerad ROSA ([id number]) -------- FINAL REPORT -------- Dictated By: Zofia Banegas Dictated Date: 08/30/2024 16:25 ET Assigned Physician: Zofia Banegas Reviewed and Electronically Signed By: Zofia Banegas Signed Date: 08/30/2024 16:26 ET Workstation ID: [id number] Transcribed By: Self Edit Transcribed Date: 08/30/2024 16:25 ET Johanna LEE IMMaryan DXA PROCEDURES Final Result * MG Mammo Digital Screening w Max bilat (08/23/2024 2:56 PM EDT) Anatomical Region Laterality Modality Breast Bilateral Mammography 08/24/2024 9:08 AM EDT Impressions 08/24/2024 9:10 AM EDT No mammographic evidence for malignancy. BI-RADS CATEGORY: 1 - NEGATIVE RECOMMENDATION: Screening bilateral mammogram is recommended in 1 year. Mammo Location: [facility], [address] [place] [address], [id number], . -------- FINAL REPORT -------- Dictated By: Zeinab Yates Dictated Date: 08/24/2024 09:08 ET Assigned Physician: Zeinab Yates Reviewed and Electronically Signed By: Zeinab Yates Signed Date: 08/24/2024 09:10 ET Workstation ID: [id number] Transcribed By: Self Edit Transcribed Date: 08/24/2024 [...] is recommended in 1 year. Mammo Location: [facility], [address] [place] [address], [id number], . -------- FINAL REPORT -------- Dictated By: Zeinab Yates Dictated Date: 08/24/2024 09:08 ET Assigned Physician: Zeinab Yates Reviewed and Electronically Signed By: Zeinab Yates Signed Date: 08/24/2024 09:10 ET Workstation ID: [id number] Transcribed By: Self Edit Transcribed Date: 08/24/2024 09:08 ET us Chandra Smiley MD IMG BI PROCEDURES Ngoc l Result * Lipid panel with reflex to direct LDL (03/31/2024 3:59 PM EST) Cholesterol 171 0 - 200 mg/dL LAB CHEMISTRY METHOD 03/31/2024 7:04 PM EST [facility] Triglycerides 72 0 - 150 mg/dL LAB CHEMISTRY METHOD 03/31/2024 7:04 PM EST [facility] HDL 82 >=40 mg/dL LAB CHEMISTRY METHOD 03/31/2024 7:04 PM EST [facility] LDL Calculated 75 0 - 100 mg/dL LAB CHEMISTRY METHOD 03/31/2024 7:04 PM EST [facility] VLDL Cholesterol Aldo 14.4 mg/dL LAB CHEMISTRY METHOD 03/31/2024 7:04 PM EST [facility] Non HDL Chol. (LDL+VLDL) 89 <145 mg/dL LAB CHEMISTRY METHOD 03/31/2024 7:04 PM EST [facility] Chol/HDL Ratio 2.1 0.0 - 4.4 LAB CHEMISTRY METHOD 03/31/2024 7:04 PM [facility] Blood Venous blood specimen / Unknown Venipuncture / Unknown 03/31/2024 3:59 PM EST 03/31/2024 3:59 PM EST us Chandra Smiley MD LAB BLOOD ORDERABLES F inal Result [facility] [address] [place] [address], * Falls Risk Assessment (10/05/2023) Falls Risk Assessment abstracted Historical Provider MD HEALTH MAINTENANCE Final Result * Depression Screening (08/11/2023) HM Depression Screening abstracted Historical Provider MD HEALTH MAINTENANCE Final Result * Hepatitis C Screening (11/17/2020) Hepatitis C Screening abstracted Historical Provider MD HEALTH MAINTENANCE Final Result * Colonoscopy (09/24/2020) Colonoscopy abstracted, no interpretation Anatomical Region Laterality Modality Other Historical Provider HEALTH MAINTENANCE Final Result from Last 3 Months or Most Recently Relevant to Health Maintenance Insurance [employer] 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
== END 2025-02-10 12:03 | disposition home or self-care (01) ==
LOC: HO.HSM 11:14
PROVIDERS: PCP Internal Medicine; Visit Provider Nurse Practitioner
DX: M54.81 Occipital neuralgia (principal); M25.511 Pain in right shoulder
CPT/HCPCS: 99214

== ENCOUNTER → 2025-02-10 11:13 | Outpatient (BNVA) | payer MEDICARE, SELFPAY | PROVIDERS: PCP Internal Medicine; Visit Provider Nurse Practitioner | DX: M54.81 Occipital neuralgia (principal); M25.511 Pain in right shoulder | CPT/HCPCS: 99212 ==